=== PATIENT | female | born 1990 | race Two or more races ===

== ENCOUNTER 2019-12-05 20:14 | Emergency (ER) | payer MEDICAID ==
[~2019-12-05] VITALS: Ht 167.6 cm; Wt 68.0 kg
[2019-12-05] MEDS ORDERED: MORPHINE SULFATE 4 MG/ML SYR/VIAL IV ONE (23:30)
[2019-12-05] MEDS ORDERED: ONDANSETRON HCL 4 MG/2 ML VIAL IV ONE (23:30)
[2019-12-06] MEDS ORDERED: fentaNYL CITRATE 100 MCG/2 ML VL IV ONE (00:45)
[2019-12-06] MEDS ORDERED: MIDAZOLAM HCL 5 MG/ML-1ML VIAL IV ONE ×2 (00:45→02:30)
[2019-12-06] MEDS ORDERED: MORPHINE SULF INJ 2 MG/ML SYRINGE 1ML IV ONE (01:45)
[2019-12-06] MEDS ORDERED: MIDAZOLAM HCL 5 MG/ML-1ML VIAL ONE (02:27)
[2019-12-06 03:30] VITALS: BP 128/84
== END 2019-12-06 03:15 | disposition home or self-care (01) ==
LOC: EDBD 20:14 → ER 20:17
DX: S83.005A Unspecified dislocation of left patella, initial encounter (principal); X58.XXXA Exposure to other specified factors, initial encounter; Y93.89 Activity, other specified; Y92.89 Other specified places as the place of occurrence of the external cause; Y99.8 Other external cause status
CPT/HCPCS: 27560; 73560; 73700; 96374; 96375; 96376; 99152; 99153; 99285; J2250; J2270; J2405; J3010

== ENCOUNTER 2021-10-02 13:15 | Emergency (ER) | payer MEDICAID ==
[~2021-10-02] VITALS: Ht 154.9 cm; Wt 49.0 kg
[2021-10-02 14:28] VITALS: BP 121/82
== END 2021-10-02 14:35 | disposition home or self-care (01) ==
LOC: ER 13:15
DX: S76.012A Strain of muscle, fascia and tendon of left hip, initial encounter (principal); Z86.2 Personal history of diseases of the blood and blood-forming organs and certain disorders involving the immune mechanism; Z90.89 Acquired absence of other organs; X58.XXXA Exposure to other specified factors, initial encounter; Y93.89 Activity, other specified; Y92.89 Other specified places as the place of occurrence of the external cause; Y99.8 Other external cause status
CPT/HCPCS: 73502

== ENCOUNTER 2022-08-02 14:43 | Emergency (ER) | payer MEDICAID ==
[2022-08-02 14:43] VITALS: BP 121/91
[2022-08-02 16:45] LABS: Urine Bacteria FEW /hpf (None Seen); Urine Blood TRACE /uL (Negative); Urine Hyaline Cast FEW /lpf (0 - 2); Urine Mucus FEW (None Seen); Urine Specific Gravity 1.027 (1.001-1.035); Urine WBC 88 /hpf (0 - 5)
[2022-08-02] MEDS ORDERED: PHEN1TAB38 PO (19:17)
[2022-08-02] MEDS ORDERED: NITR-87 PO (19:17)
== END 2022-08-02 23:30 | disposition home or self-care (01) ==
LOC: ER 14:43
DX: N39.0 Urinary tract infection, site not specified (principal); Z90.89 Acquired absence of other organs; Z98.51 Tubal ligation status
CPT/HCPCS: 81001

== ENCOUNTER 2023-06-30 10:53 | Emergency (ER) | payer MEDICAID ==
[~2023-06-30] VITALS: Ht 154.9 cm; Wt 45.7 kg
[~2023-06-30 10:53] MED LIST: NITR-87 PO; PHEN1TAB38 PO
[2023-06-30 12:22] VITALS: BP 112/81; PULSE 92; RESP 18; TEMP 98.5; O2SAT 99
[2023-06-30] MEDS ORDERED: IBUPROFEN 600 MG TAB PO ONE (13:15)
[2023-06-30 14:07] LABS: Alanine Aminotransferase 11 U/L (7-40); Albumin 4.7 g/dL (3.2-4.8); Alkaline Phosphatase 60 U/L (46-116); Anion Gap 6 (5-15); Aspartate Aminotransferase 19 U/L (13-40); Blood Urea Nitrogen 7 mg/dL (9-23); Calcium 9.5 mg/dL (8.7-10.4); Carbon Dioxide 25 mmol/L (20-30); Chloride 105 mmol/L (98-107); Glucose 117 mg/dL (74-106); Sodium 136 mmol/L (136-145)
[2023-06-30 14:08] LABS: Bilirubin, Total 0.7 mg/dL (0.2-1.0); Total Protein 7.9 g/dL (5.7-8.2)
== END 2023-06-30 14:28 | disposition left against medical advice (07) ==
LOC: ER 10:53
DX: S76.012A Strain of muscle, fascia and tendon of left hip, initial encounter (principal); Z90.89 Acquired absence of other organs; X58.XXXA Exposure to other specified factors, initial encounter; Y93.89 Activity, other specified; Y92.89 Other specified places as the place of occurrence of the external cause; Y99.8 Other external cause status
CPT/HCPCS: 36415; 80053

== ENCOUNTER 2024-09-13 16:23 | Emergency (ER) | payer MEDICAID ==
[~2024-09-13] VITALS: Ht 154.9 cm; Wt 45.1 kg
[2024-09-13 16:54] LABS: Urine Bacteria None Seen /hpf (None Seen)
[2024-09-13 17:00] LABS: Basophils # (auto) 0 10 ^3/uL (0-0.2); Basophils % (auto) 0.2 % (0.0-2.0); Eosinophils # (auto) 0 10 ^3/uL (0-0.8); Eosinophils % (auto) 0.1 % (0.0-7.0); Hematocrit 42.5 % (36.0-46.0); Hemoglobin 14.2 g/dL (12.2-16.2); Lymphocytes # (auto) 1.7 10 ^3/uL (0.4-5.4); Lymphocytes % (auto) 10.5 % (10.0-50.0); Mean Corpuscular Hemoglobin 30.8 pg (28.0-32.0); Mean Corpuscular Hgb Conc. 33.5 g/dL (32.0-36.0); Monocytes # (auto) 1.3 10 ^3/uL (0-1.3); Monocytes % (auto) 8.1 % (0.0-12.0); Neutrophils # (auto) 13.3 10 ^3/uL (1.6-8.6); Neutrophils % (auto) 81.1 % (37.0-80.0); Platelet Count (auto) 306 10^3/uL (140-450); Red Blood Cells 4.62 10^6/uL (4.0-5.20); Red Cell Distribution Width 13.7 % (11.8-14.3); White Blood Cell 16.4 10^3/uL (4.4-10.8)
[2024-09-13 17:05] LABS: Urine Blood Negative /uL (Negative); Urine Clarity Clear (Clear); Urine Color Light-Yellow (Yellow); Urine Protein, UAD TRACE (Negative); Urine Squamous Epithelial Cell FEW /hpf (<5); Urine Urobilinogen Normal (Negative); Urine WBC 24 /hpf (0 - 5); Urine pH 8.5 (5.0-9.0)
[2024-09-13 17:27] LABS: Alanine Aminotransferase 15 U/L (7-40); Albumin 4.9 g/dL (3.2-4.8); Alkaline Phosphatase 69 U/L (46-116); Anion Gap 10 (5-15); Aspartate Aminotransferase 15 U/L (13-40); BUN/Creatinine Ratio 4.3 (10.0-20.0); Bilirubin, Total 1.3 mg/dL (0.2-1.0); Blood Urea Nitrogen 5 mg/dL (9-23); Calcium 10.5 mg/dL (8.7-10.4); Carbon Dioxide 22 mmol/L (20-31); Chloride 100 mmol/L (98-107); Glucose 131 mg/dL (74-106); Sodium 132 mmol/L (136-145); Total Protein 8.2 g/dL (5.7-8.2)
--- NOTE | 2024-09-13 17:29 | ED.PDOC ---
History of Present Illness HPI Comments 34 y/o F, with a Hx of sepsis secondary to nephrolithiasis, presents with c/o non-radiating, left-sided flank pain, today. Patient endorses on sudden and unprovoked onset of symptoms, this morning, that has been constant since and 06/25 in severity. Patient reports no recent injuries, sick contact, travel, or other additional relevant or pertinent Hx. She denies having any urinary symptoms, nausea, vomiting, fever, chills, or other associated symptoms or modifiers at this time. Chief Complaint: Flank Pain Time Seen by MD: 16:45 Primary Care Provider: ? Reviewed Notes: Nurses Notes, Medications, Allergies Allergies: Coded Allergies: NO KNOWN ALLERGIES (Unverified , 05/30/16) Home Meds Active Scripts Phenazopyridine HCl (Phenazopyridine Hydrochlo 100 mg) 1 Tab Tab, 1 TAB PO TID, #10 TAB Prov:DANY YOST PAC 08/02/22 Nitrofurantoin Monohydrate Mac (Macrobid) 100 Mg Cap, 100 MG PO BID for 7 Days, #14 CAP Prov:DANY YOST PAC 08/02/22 Information Source: Patient Mode of Arrival: Ambulatory Severity: Moderate Timing: Hours Duration: Since onset Prehospital treatment: None Past Medical History PAST MEDICAL HISTORY: Anemia, Kidney Stones Past Medical History (Other): sepsis secondary to kidney stones Surgical History: Tonsillectomy, Tubal Ligation FLOOR AND WALL [employer]IER [employer]QU[employer] History: Ovarian Cysts Family History Family History: Family hx of stroke Social History Smoker: Non-Smoker Alcohol: Occasionally Drugs: Denies Drug Use Lives In: Home Constitutional: reports: chills, fever; denies: diaphoresis, fatigue, malaise, sweats, weakness, others Respiratory: denies: cough, hemoptysis, orthopnea, SOB at rest, shortness of breath, SOB with excertion, stridor, wheezing, others Cardiovascular: denies: chest pain, dizzy spells, diaphoresis, Dyspnea on exertion, edema, irregular heart beat, left arm pain, lightheadedness, palpitations, PND, syncope, others Gastrointestinal: denies: abdomen distended, abdominal pain, blood streaked bowels, constipated, diarrhea, dysphagia, difficulty swallowing, hematemesis, melena, nausea, poor appetite, poor fluid intake, rectal bleeding, rectal pain, vomiting, others Genitourinary: reports: flank pain (left-sided ) Neurological: denies: dizziness, fainting, headache, left sided numbness, left sided weakness, numbness, paresthesia, pre-existing deficit, right sided numbness, right sided weakness, seizure, speech problems, tingling, tremors, weakness, others Musculoskeletal: denies: back pain, gout, joint pain, joint swelling, muscle pain, muscle stiffness, neck pain, others Integumetry: denies: bruises, change in color, change in hair/nails, dryness, laceration, lesions, lumps, rash, wounds, others All Other Systems: Reviewed and Negative (negative unless otherwise stated above or in HPI) Physical Exam General Appearance: Moderate Distress, Thin HEENT: Normal ENT Inspection, Pharynx Normal, TMs Normal Neck: Full Range of Motion, Non-Tender, Normal, Normal Inspection Respiratory: Chest Non-Tender, Lungs Clear, No Accessory Muscle Use, No Respiratory Distress, Normal Breath Sounds Cardiovascular: No Edema, No JVD, No Murmur, No Gallop, Normal Peripheral Pu lses, Regular Rate/Rhythm Breast Exam: Deferred Gastrointestinal: No Organomegaly, Non Tender, No Pulsatile Mass, Normal Bowel Sounds, Soft Genitalia: Deferred Pelvic: Deferred Rectal: Deferred Extremities: No calf tenderness, Normal capillary refill, Normal inspection, Normal range of motion, Non-tender, No pedal edema Musculoskeletal : Location: Left Extremity Location: Other (CVA) Apperance: Normal, Tenderness Neurologic: Alert, campus interviews intern II-XII nml as Tested, No Motor Deficits, Normal Affect, Normal Mood, No Sensory Deficits Cerebellar Function: Normal Reflexes: Normal Skin: Dry, Normal Color, Warm Lymphatic: No Adenopathy Was a procedure done? Was a procedure done?: No Differential Dx Considerations may include: nephrolithiasis, pyelonephritis, cystitis, musculoskeletal pain, ovarian cysts, ovarian torsion, X-Ray, Labs, Meds, VS Vital Signs Date Time Temp Pulse Resp B/P (MAP) Pulse Ox O2 Delivery O2 Flow Rate FiO2 09/13/24 16:40 97.9 156 28 129/96 (107) 96 Lab Test 09/13/24 16:50 09/13/24 16:41 Range/Units White Blood Count 16.4 H 4.4-10.8 10^3/uL Red Blood Count 4.62 4.0-5.20 10^6/uL Hemoglobin 14.2 12.2-16.2 g/dL Hematocrit 42.5 36.0-46.0 % Mean Corpuscular Volume 92.0 80.0-100.0 fL Mean Corpuscular Hemoglobin 30.8 28.0-32.0 pg Mean Corpuscular Hemoglobin Concent 33.5 32.0-36.0 g/dL Red Cell Distribution Width 13.7 11.8-14.3 % Platelet Count 306 140-450 10^3/uL Mean Platelet Volume 8.6 6.9-10.8 fL Neutrophils (%) (Auto) 81.1 H 37.0-80.0 % Lymphocytes (%) (Auto) 10.5 10.0-50.0 % Monocytes (%) (Auto) 8.1 0.0-12.0 % Eosinophils (%) (Auto) 0.1 0.0-7.0 % Basophils (%) (Auto) 0.2 0.0-2.0 % Neutrophils # (Auto) 13.3 H 1.6-8.6 10 ^3/uL Lymphocytes # (Auto) 1.7 0.4-5.4 10 ^3/uL Monocytes # (Auto) 1.3 0-1.3 10 ^3/uL Eosinophils # (Auto) 0 0-0.8 10 ^3/uL Basophils # (Auto) 0 0-0.2 10 ^3/uL Nucleated Red Blood Cells 0.0 % Sodium Level 132 L 136-145 mmol/L Potassium Level 4.0 3.5-5.1 mmol/L Chloride Level 100 98-107 mmol/L Carbon Dioxide Level 22 20-31 mmol/L Anion Gap 10 5-15 Blood Urea Nitrogen 5 L 9-23 mg/dL Creatinine 1.15 H 0.550-1.02 mg/dL Glomerular Filtration Rate Calc 63 >90 mL/min BUN/Creatinine Ratio 4.3 L 10.0-20.0 Serum Glucose 131 H 74-106 mg/dL Calcium Level 10.5 H 8.7-10.4 mg/dL Total Bilirubin 1.3 H 0.2-1.0 mg/dL Aspartate Amino Transferase (AST) 15 13-40 U/L Alanine Aminotransferase (ALT) 15 7-40 U/L Alkaline Phosphatase 69 46-116 U/L Total Protein 8.2 5.7-8.2 g/dL Albumin 4.9 H 3.2-4.8 g/dL Urine Color Light-yellow Yellow Urine Clarity Clear Clear Urine pH 8.5 5.0-9.0 Urine Specific [place] 1.010 1.001-1.035 Urine Protein Trace H Negative Urine Ketones 1+ H Negative Urine Blood Negative Negative /uL Urine Nitrite Negative Negative Urine Bilirubin Negative Negative Urine Urobilinogen Normal Negative mg/dL Urine Leukocyte Esterase 1+ Negative /uL Urine RBC 7 0 - 4 /hpf Urine WBC 24 0 - 5 /hpf Urine Squamous Epithelial Cells Few <5 /hpf Urine Bacteria None seen None Seen /hpf Urine Glucose Normal Normal mg/dL Urine Test Negative Negative X-Ray, Labs, Meds, VS Comment Imaging: X-rays and CT scans were reviewed and interpreted by this provider, imaging shows no fractures and no pathological disease. Pending radiology review. Laboratory: Labs reviewed and interpreted by this provider. Elevated white count and urinalysis are suggestive of UTI Patient has prior medical visits reviewed. Med reconciliation performed Vital signs reviewed Time of 1ST Reevaluation: 17:15 Reevaluation 1ST: Unchanged Patient Education/Counseling: Diagnosis, Treatment, Need For Follow Up (Follow up in the emergency department in the next 2-4 days if symptoms worsened. Follow up in PCP office next available appointment.) Family Education/Counseling: No Family Present Departure 1 Departure Time of Disposition: 18:19 Impression: Primary Impression: UTI (urinary tract infection) Qualified Codes: N30.00 - Acute cystitis without hematuria Disposition: HOME / SELF CARE / HOMELESS Condition: Fair e-Prescriptions Ciprofloxacin Hcl (Cipro) 500 Mg Tab 1 TAB PO BID for 7 Days, #14 TAB Prov: JADA MEYERS 09/13/24 Discharged With: Self Critical Care Note Critical Care Time?: No Stability Stability form required: No Heart Score Heart Score: Heart Score Response (Comments) Value History N/A 0 EKG N/A 0 Age N/A 0 Risk Factors N/A 0 Troponin N/A 0 Total 0 I personally scribed for JADA MEYERS ([email or web address]) on 09/13/24 at 17:29. Electronically submitted by Rick Lui ([email or web address]). JADA MEYERS Sep 13, 2024 17:29
--- NOTE | 2024-09-13 18:09 | DVH ---
Exam: CT CT AB PEL WO CON-NO ORAL OR IV History: flank pain Comparison Study: None available at time of dictation. TECHNIQUE: Multidetector CT of the abdomen was performed from lung bases to pubic symphysis. Imaging was performed without IV contrast. Axial, coronal and sagittal multiplanar reformats were obtained fr om the axial data set by the technologist. Radiation Dose Information: CT Dose: CTDI volume is 5.07 mGy. Dose-length product is 243.36 mGy*cm FINDINGS: Evaluation of solid organs is limited due to lack of intravenous contrast use. Findings: Lung Bases: No acute or significant lung base finding. Normal heart size. No pleural or pericardial effusion. Liver: The liver is normal in size. No focal lesions. Gallbladder and Biliary Tree: Unremarkable Spleen: Unremarkable Pancreas: The pancreas is grossly normal in appearance. Adrenal Glands: Unremarkable Kidneys: Kidneys are grossly normal without calculi or hydronephrosis. Bladder: Grossly unremarkable for degree of distention. Bowel: The stomach is grossly normal in appearance. Small bowel and colon are normal in caliber and d istribution. The appendix is not visualized; however, no secondary findings of acute appendicitis id entified. Ascites: Absent Lymphadenopathy: No mesenteric, retroperitoneal or periportal lymphadenopathy. Abdominal Wall and Mesentery: Unremarkable. Vasculature: The visualized abdominal aorta is normal in size and caliber. Evaluation of abdominal a nd pelvic vessels is limited due to lack of intravenous contrast. Pelvic Organs: Possible bilateral tubal ligation Musculoskeletal: No aggressive focal bony lesions, acute fractures or dislocation. Soft tissues: Unremarkable IMPRESSION: 1. Probable bilateral tubal ligation. 2. No free air or free fluid. Radiation optimization: All CT scans at this facility use at least one of these dose optimization nathan hniques: automated exposure control mA and/or kV adjustment per patient size (includes targeted exam s where dose is matched to clinical indication) or iterative reconstruction.
[2024-09-13] MEDS ORDERED: CIPR-173 PO (18:20)
[2024-09-13] MEDS: KETOROLAC TROMETH 30 MG/ML 1ML VIAL IM ONE (20:39)
[2024-09-13] MEDS: cefTRIAXone SOD 1,000 MG VL IM ONE (20:39)
[2024-09-13 20:50] VITALS: BP 120/59; PULSE 140; RESP 20; TEMP 99.9; O2SAT 97
[2024-09-13] MEDS: ONDANSETRON HCL 4 MG/2 ML VIAL ONE (20:54)
[2024-09-13] MEDS: SODIUM CHLORIDE 0.9% 1,000 ML IV ONE (20:54)
[2024-09-13] MEDS: ONDANSETRON HCL 4 MG/2 ML VIAL IV ONE (20:57)
== END 2024-09-13 21:51 | disposition home or self-care (01) ==
LOC: ER 16:23
DX: N39.0 Urinary tract infection, site not specified (principal); Z87.442 Personal history of urinary calculi; Z90.89 Acquired absence of other organs; Z98.51 Tubal ligation status; Z79.899 Other long term (current) drug therapy
CPT/HCPCS: 36415; 74176; 80053; 81001; 81025; 85025; 96361; 96372; 96374; 99285; J0696; J1885; J2405; J7030

== ENCOUNTER 2025-03-14 02:53 | Emergency (ER) | payer MEDICAID ==
[~2025-03-14] VITALS: Ht 154.9 cm; Wt 50.0 kg
[~2025-03-14 02:53] MED LIST changes: +CIPR-173 PO
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
[2025-03-14] MEDS: LIDOCAINE 1% HCL (LOCAL ANESTH.) INJ 20ML MDV ID ONE (05:13)
[2025-03-14] MEDS: TETANUS-DIPTH-ACEL PERTUSSIS 0.5ML SYR Tdap IM ONE (06:03)
[2025-03-14 06:08] VITALS: BP 117/85; PULSE 108; RESP 16; TEMP 97.9; O2SAT 96
== END 2025-03-14 06:10 | disposition home or self-care (01) ==
LOC: EDBD 02:53 → ER 02:53
DX: S01.511A Laceration without foreign body of lip, initial encounter (principal); S13.4XXA Sprain of ligaments of cervical spine, initial encounter; Z98.51 Tubal ligation status; Z90.89 Acquired absence of other organs; V43.52XA Car driver injured in collision with other type car in traffic accident, initial encounter; Y93.89 Activity, other specified; Y92.410 Unspecified street and highway as the place of occurrence of the external cause; Y99.8 Other external cause status
CPT/HCPCS: 12011; 70450; 70486; 72125